=== PATIENT | male | born 1930 | race Caucasian/White ===

== ENCOUNTER 2016-12-06 08:23 | Emergency (ER) | payer OTHER ==
--- NOTE | ~2016-12-06 | EKG ---
PATIENT: ESME CRAIG UNIT #: [id number] Ventricular Rate: 81 BPM Atrial Rate: 81 BPM P-R Interval: 142 ms QRS Duration: 164 ms Q-T Interval: 438 ms QTC Calculation(Bezet): 508 ms P [place]: 62 degrees Calculated R [place]: -84 degrees Calculated T [place]: 80 degrees Diagnosis Line: Atrial-sensed ventricular-paced rhythm Diagnosis Line: Abnormal ECG Diagnosis Line: No previous ECGs available Diagnosis Line: Confirmed by DESMOND MCMAHON MD ([id number]) on Diagnosis Line: 12/08/2016 1:02:19 PM INTERPRETING MD: [email or web address]
[~2016-12-06 08:23] MED LIST: ALLOPURINOL300 MG; ASPIRIN PO; CINNAMON3.7 ML PO; ELIQUIS2.5 MG PO; FISH OIL 1,0001 CAP PO; GLIPIZIDE2.5 MG/BO1; GLUCOTROL PO; GLUCOTROL XL PO; KOMBIGLYZE XR1 EAC2; LORTAB 5/500 TA1 TA2 PO; LOTENSIN; LOTREL 10/20 MG1 CAP PO; LOW DOSE ASPIRI81 M1; METFORMIN HCL500 M1 PO; NEXIUM PO; PRILOSEC20 M1; PRILOSEC20 MG PO; RANITIDINE HCL150 M1 PO; TYLENOL325 M1 PO; VYTORIN 10/80 T1 TAB PO; ZOCOR PO; ZOCOR80 MG; [UNRECOGNIZED DRUG - OTHER] PO
[2016-12-06 09:51] LABS: BASOPHIL% 0.4 % (0-2.5); EOSINOPHIL# 0.1 X10e3 (0-0.7); EOSINOPHIL% 0.8 % (0.0-7.0); HEMATOCRIT 28.7 % (38.0-50.0); HEMOGLOBIN 9.3 gm/dL (13.0-16.0); LYMPHOCYTE# 0.9 X10e3 (1.0-3.5); LYMPHOCYTE% 9.6 % (17.0-45.0); MEAN CELL VOLUME 96.3 FL (83-96); MEAN CORPUSCULAR HEMOGLOBIN 31.4 PG (28-34); MEAN CORPUSCULAR HGB CONC 32.5 g/dL (30-36); MONOCYTE# 0.8 X10e3 (0-1.0); MONOCYTE% 8.1 % (3.0-12.0); NEUTROPHIL% 81.1 % (40-75); PLATELET COUNT 179 X10e3 (140-420); RED BLOOD COUNT 2.98 X10e (3.90-5.60); RED CELL DISTRIBUTION WIDTH 16.7 % (11.0-15.5); WHITE BLOOD COUNT 9.8 X10e3 (4.0-10.5)
[2016-12-06 09:52] LABS: DIFF IND NO
[2016-12-06 10:04] LABS: POC - CKMB 2.7 ng/mL (0.0-7.9); POC - TROPONIN <0.05 ng/mL (<=0.05)
[2016-12-06 10:17] LABS: BUN/CREATININE RATIO 16.66; CALCIUM SERUM 9.4 mg/dL (8.4-10.2); CREATININE SERUM 1.8 mg/dL (0.6-1.4); GLOM FILT RATE Estimated 33.3 mL/min (>60); POTASSIUM 4.1 mmol/L (3.5-5.1)
== END 2016-12-06 12:52 | disposition home or self-care (01) ==
LOC: CED 08:23
PROVIDERS: Emergency Medicine; Nurse Practitioner
DX: M43.6 Torticollis (principal); E11.9 Type 2 diabetes mellitus without complications; E78.5 Hyperlipidemia, unspecified; I10 Essential (primary) hypertension; M10.9 Gout, unspecified; Z95.1 Presence of aortocoronary bypass graft; Z79.899 Other long term (current) drug therapy; Z88.8 Allergy status to other drugs, medicaments and biological substances
CPT/HCPCS: 36415; 80048; 82553; 82947; 84484; 85025; 93005; 99282; 99283